=== PATIENT | female | born 1960 | race Caucasian/White ===

== ENCOUNTER → 2019-07-01 | Outpatient (CLI) | payer BC ==
--- NOTE | 2019-07-01 13:49 | Diagnostic Imaging Report ---
INDICATION: Knee pain. Three views were obtained. FINDINGS: There is mild three compartment osteoarthritic change. There is no fracture or dislocation. Soft tissues are unremarkable. IMPRESSION: Three compartment osteoarthritic change, otherwise unremarkable. Dictated by: Dictated on workstation # [id number]
== END ==
LOC: RAD FS 13:33
PROVIDERS: ATTEND Nurse Practitioner
DX: M17.11 Unilateral primary osteoarthritis, right knee (principal)
CPT/HCPCS: 73562